=== PATIENT | female | born 1995 | race Caucasian/White ===

== ENCOUNTER 2016-12-27 17:23 | Emergency (ER) | payer SELFPAY ==
--- NOTE | 2016-12-27 18:15 | DIAGNOSTIC IMAGING REPORT ---
PROCEDURE: XR ANKLE 3 OR 4 VIEWS - RIGHT INDICATION: TRAUMA/INJURY TECHNIQUE: Four views. COMPARISON: None. FINDINGS: Osseous structures and joint spaces are normal. IMPRESSION: 1. Normal right ankle.
--- NOTE | 2016-12-27 18:25 | ED NURSING NOTES ---
Clinical Report - Nurses [facility] [address] [place] [address] 12/27/2016 17:28 Patient: PATRIA GRANT TRIAGE Triage time 17:33. Acuity: LEVEL 4. Chief Complaint: INJURY TO RIGHT KNEE and ANKLE. INJURY TO THE RIGHT ANKLE. SEPSIS SCREEN: Sepsis Screen. Negative (no infection suspected/documented). MARCIA COMA SCORE: [place] Coma Scale: 15- eyes open spontaneously (4); best verbal response- oriented x 4 (5); best motor response- obeys commands (6). --17:41 Ayo Villareal R.N. 17:33 12/27/16. BP: 104/52. HR: 92. RR: 16. O2 saturation: 99% on room air. Temp: 98.6 F (oral). Pain level now: 01/23. --17:41 Ayo Villareal R.N. Weight: 95.2 kg stated. Height/Length: 64 inches Per Patient. BMI: 36.1. --17:37 Ayo Villareal R.N. Medications None. --17:36 Ayo Villareal R.N. Allergies Morphine and Related. --17:36 Ayo Villareal R.N. History Arrived by private vehicle. Historian: patient. Accompanied by family. This occurred just prior to arrival. Mechanism of injury: sustained a twisting injury (while hiking). SOCIAL HX: Never smoker. No alcohol use or drug use. ABUSE ASSESSMENT: No report of abuse. --17:41 Ayo Villareal R.N. PROBLEMS: no known problems. ADDITIONAL SURGERIES: . Felopian tube removed. --17:36 Ayo Villareal R.N. Interventions ID band on patient. To treatment room. --17:41 Ayo Villareal R.N. PHYSICAL ASSESSMENT To room via wheelchair. GENERAL / NEURO / PSYCH: Oriented X 4. Alert. Appears in no acute distress. EXTREMITIES: Extremities do not exhibit normal ROM. Capillary refill is less than 2 seconds in the extremities. Extremity pulses are within normal limits. Neuro-vascular status intact to the extremity. Right ankle: tenderness and swelling. Limited ROM secondary to pain and swelling. SKIN: Skin intact. Skin is warm and dry. --17:43 Ayo Villareal R.N. NURSING PROGRESS NOTES Reassurance given. Two patient identifiers checked. Call light placed in reach. Patient placed in chair. Patient ready for evaluation- chart flagged. --17:43 Ayo Villareal R.N. 18:00. Patient returned from radiology by wheelchair with tech. --18:00 McQuoid, Chen, ER Tech1. DISPOSITION / DISCHARGE Departure time: 1833. Condition at departure: unchanged and stable. ( Calvin wrap applied to the right ankle, +CMS distal, decreased pain with Calvin wrap in place.). No learning barriers present. Discharge instructions provided and reviewed with the patient. Reviewed warnings. Reviewed medication(s). Treatments reviewed. Patient verbalized understanding. Written instructions provided in Danish. The patient was discharged by the nurse practitioner. She was discharged home and accompanied by family. She left the Emergency Department in a wheelchair and via private vehicle. Family member driving. --18:47 Ayo Villareal R.N. Locked/Released at 12/27/2016 18:47 by Ayo Villareal R.N.
--- NOTE | 2016-12-27 18:25 | ED NURSING NOTES ---
Clinical Report - Nurses [place] [address] [place] [address] 12/27/2016 17:28 Patient: PATRIA GRANT TRIAGE Triage time 17:33. Acuity: LEVEL 4. Chief Complaint: INJURY TO RIGHT KNEE and ANKLE. INJURY TO THE RIGHT ANKLE. SEPSIS SCREEN: Sepsis Screen. Negative (no infection suspected/documented). MARCIA COMA SCORE: [place] Coma Scale: 15- eyes open spontaneously (4); best verbal response- oriented x 4 (5); best motor response- obeys commands (6). --17:41 Ayo Villareal R.N. 17:33 12/27/16. BP: 104/52. HR: 92. RR: 16. O2 saturation: 99% on room air. Temp: 98.6 F (oral). Pain level now: 01/23. --17:41 Ayo Villareal R.N. Weight: 95.2 kg stated. Height/Length: 64 inches Per Patient. BMI: 36.1. --17:37 Ayo Villareal R.N. Medications None. --17:36 Ayo Villareal R.N. Allergies Morphine and Related. --17:36 Ayo Villareal R.N. History Arrived by private vehicle. Historian: patient. Accompanied by family. This occurred just prior to arrival. Mechanism of injury: sustained a twisting injury (while hiking). SOCIAL HX: Never smoker. No alcohol use or drug use. ABUSE ASSESSMENT: No report of abuse. --17:41 Ayo Villareal R.N. PROBLEMS: no known problems. ADDITIONAL SURGERIES: . Felopian tube removed. --17:36 Ayo Villareal R.N. Interventions ID band on patient. To treatment room. --17:41 Ayo Villareal R.N. PHYSICAL ASSESSMENT To room via wheelchair. GENERAL / NEURO / PSYCH: Oriented X 4. Alert. Appears in no acute distress. EXTREMITIES: Extremities do not exhibit normal ROM. Capillary refill is less than 2 seconds in the extremities. Extremity pulses are within normal limits. Neuro-vascular status intact to the extremity. Right ankle: tenderness and swelling. Limited ROM secondary to pain and swelling. SKIN: Skin intact. Skin is warm and dry. --17:43 Ayo Villareal R.N. NURSING PROGRESS NOTES Reassurance given. Two patient identifiers checked. Call light placed in reach. Patient placed in chair. Patient ready for evaluation- chart flagged. --17:43 Ayo Villareal R.N. 18:00. Patient returned from radiology by wheelchair with tech. --18:00 McQuoid, Chen, ER Tech1. DISPOSITION / DISCHARGE Departure time: 1833. Condition at departure: unchanged and stable. ( Calvin wrap applied to the right ankle, +CMS distal, decreased pain with Calvin wrap in place.). No learning barriers present. Discharge instructions provided and reviewed with the patient. Reviewed warnings. Reviewed medication(s). Treatments reviewed. Patient verbalized understanding. Written instructions provided in Upper Sorbian. The patient was discharged by the nurse practitioner. She was discharged home and accompanied by family. She left the Emergency Department in a wheelchair and via private vehicle. Family member driving. --18:47 Ayo Villareal R.N. Locked/Released at 12/27/2016 18:47 by Ayo Villareal R.N.
--- NOTE | 2016-12-27 18:25 | ED CLINICAL REPORT ---
Clinical Report - Physicians/Mid Levels [facility] [address] [place] [place] [address] 12/27/2016 17:28 Patient: PATRIA GRANT Time Seen: 17:46; initial patient contact, initial documentation, patient care assumed. Arrived- By private vehicle. Historian- patient. HISTORY OF PRESENT ILLNESS Chief Complaint: Injury to the right ankle. The injury happened just prior to arrival. The patient sustained a twisting injury while walking (hiking[place] Patient is experiencing moderate pain. Patient denies injury to the head or neck. No other injury. REVIEW OF SYSTEMS The patient complains of pain on weight bearing. She has had swelling. No tingling, weakness, numbness, suspected foreign body or skin laceration. All systems otherwise negative, except as recorded above. PAST HISTORY See nurses notes. PROBLEMS: no known problems. ADDITIONAL SURGERIES: . Felopian tube removed. --17:36 Ayo Villareal R.N. SOCIAL HISTORY Never smoker. No alcohol use or drug use. No recent travel. Is a local resident. FAMILY HISTORY No significant family medical history. ADDITIONAL NOTES The nursing notes have been reviewed with agreement regarding the chief complaint, HPI, ROS, PMH and patient medications and allergies. PHYSICAL EXAM Vital Signs: 12/27/2016 17:33 BP: 104/52. HR: 92. RR: 16. O2 saturation: 99%. Temp: 98.6 F. Pain level now: 8/10. Have been reviewed as normal and appear to be correct. Appearance: Alert. Oriented X3. No acute distress. Head: Head atraumatic. Eyes: Pupils equal, round and reactive to light. Eyes normal inspection. Respiratory: No respiratory distress. Skin: Skin intact. Skin warm and dry. Extremities: Ankle injury present. Right lateral ankle: mild tenderness and swelling of the lateral malleolus. Limited ROM secondary to pain (diminished plantar flexion, dorsiflexion, inversion and eversion). Neurovascular intact distally. No ligamentous laxity present. No joint effusion. No erythema, laceration, abrasion, ecchymosis or puncture wound. No foreign body or deformity. No foot injury. Foot and ankle exam otherwise negative. Extremities otherwise negative. Neuro, Vascular and Tendons: Vascular status intact. Sensation intact. Motor intact. Tendon function intact. Gait: Abnormal gait. Limping gait. Neuro: Oriented X 3. No motor deficit. No sensory deficit. Note: isolated injury to ankle. LABS, X-RAYS, AND EKG X-Rays: Right ankle negative. Rt Ankle X-ray: (IMPRESSION: 1. Normal right ankle. Electronically Final signed by:Romero Rico MD 12/27/2016 6:16:00 PM). The X-rays were interpreted by the radiologist and contemporaneously by me. PROGRESS AND PROCEDURES Patient counseled in person regarding the patient's stable condition, test results and diagnosis. 18:22. Differential Diagnosis: Other possible considerations: ankle fx vs sprain. Above considerations are based on history, physical exam, reassessment and X-Ray data. Differential diagnosis was discussed with patient. Disposition: Discharged home in good and improved condition (18:25). Condition: good and stable. CLINICAL IMPRESSION Sprain of the tibiofibular ligament of the right ankle. INSTRUCTIONS Apply ice for 20 minutes four times a day for two days until better. Don't apply ice directly to skin. Wear elastic wrap (Calvin wrap) as directed for one weeks until better. Elevate affected areas above chest level for two days until better. Warnings: GENERAL WARNINGS: Return or contact your physician immediately if your condition worsens or changes unexpectedly, if not improving as expected, or if other problems arise. Specifically return if problem worsens. Prescription Medications: Ultram 50 mg tablets: take 1-2 orally every 6 hours as needed for pain. Dispense twenty (20). No refills. Substitution is permissible. Follow-up: Follow up with your doctor in about one week as needed. Call for an appointment. Summary of care provided to patient. Understanding of the discharge instructions verbalized by patient. (Electronically signed by Sidra Oliveira A.R.N.P. 12/27/2016 20:17)
--- NOTE | 2016-12-27 18:26 | ED ORDER SUMMARY ---
..... Patient: PATRIA GRANT OrderSheet [facility] VisitID: [id number] [address] [place] [address] 21y, F Registration Date/Time: 12/27/2016 ORDER SHEET Weight: 95.2 kg (stated) Allergies: Morphine and Related GENERAL ORDERS: Ankle 3 or 4V Right Urgent (17:49 12/27/2016 HBnelly A.R.N.P.) (Ack 17:59 AMcQuoid ER Tech1) (17:59 AMcQuoid ER Tech1) MEDICATION ORDERS: IV FLUIDS: ORDER SHEET NOTES: [Electronically signed by Ayo Villareal R.N. (18:47 12/27/2016)] [Electronically signed by Sidra OliveiraR.N.PRaine (20:17 12/27/2016)] [Electronically locked/signed by Ayo Villareal R.N. (18:47 12/27/2016)]
--- NOTE | 2016-12-27 18:26 | ED ORDER SUMMARY ---
..... Patient: PATRIA GRANT OrderSheet [facility] VisitID: [id number] [address] [place] [address] 21y, F Registration Date/Time: 12/27/2016 ORDER SHEET Weight: 95.2 kg (stated) Allergies: Morphine and Related GENERAL ORDERS: Ankle 3 or 4V Right Urgent (17:49 12/27/2016 HBnelly A.R.N.P.) (Ack 17:59 AMcQuoid ER Tech1) (17:59 AMcQuoid ER Tech1) MEDICATION ORDERS: IV FLUIDS: ORDER SHEET NOTES: [Electronically signed by Ayo Villareal R.N. (18:47 12/27/2016)] [Electronically signed by Sidra OliveiraR.N.PRaine (20:17 12/27/2016)] [Electronically locked/signed by Ayo Villareal R.N. (18:47 12/27/2016)]
--- NOTE | 2016-12-27 20:18 | ED MAR SUMMARY ---
..... Medication Administration Record [facility] [address] [place], [place] [id number] Patient: PATRIA GRANT Visit ID: [id number] 21y, F Weight: 95.2 kg Height/Length: 64 in BMI: 36.1 ALLERGIES: Morphine and Related
--- NOTE | 2016-12-27 20:18 | ED DISCHARGE INSTRUCTIONS ---
Patient: PATRIA GRANT General Instructions [facility] VisitID: [id number] [place] [address] 21y, F Registration Date/Time: 12/27/2016 Sprain of the tibiofibular ligament of the right ankle. INSTRUCTIONS Apply ice for 20 minutes four times a day for two days until better. Don't apply ice directly to skin. Wear elastic wrap (Calvin wrap) as directed for one weeks until better. Elevate affected areas above chest level for two days until better. Warnings: GENERAL WARNINGS: Return or contact your physician immediately if your condition worsens or changes unexpectedly, if not improving as expected, or if other problems arise. Specifically return if problem worsens. Prescription Medications: Ultram 50 mg tablets: take 1-2 orally every 6 hours as needed for pain. Dispense twenty (20). No refills. Substitution is permissible. Follow-up: Follow up with your doctor in about one week as needed. Call for an appointment. Summary of care provided to patient. Understanding of the discharge instructions verbalized by patient. ADDITIONAL INFORMATION Sprain, Ankle,With X-Ray A sprain is an injury to the ligaments or capsule that holds a joint together. There are no broken bones. Most sprains take from four to six weeks to heal. If the ligament is completely torn (severe sprain), it can take several months to recover. Mild to moderate sprains may be treated with an elastic wrap or an in-shoe splint to provide support and prevent re-injury. A mild sprain may not require any additional support. A severe sprain may require surgery to repair. Home care The following guidelines will help you care for your injury at home: Stay off the injured leg as much as possible until you can walk on it without pain. If you have a lot of pain with walking, crutches or a walker may be prescribed. (These can be rented or purchased at many pharmacies and surgical or orthopedic supply stores). Follow your doctor's advice regarding when to begin bearing weight on that leg. Keep your leg elevated to reduce pain and swelling. When sleeping, place a pillow under the injured leg. When sitting, support the injured leg so it is level with your waist. This is very important during the first 48 hours. Apply an ice pack (ice cubes in a plastic bag, wrapped in a towel) over the injured area for 20 minutes every 12 hours the first day. You can place the ice pack directly over the splint/cast. If you were given a boot, open it to apply the ice pack. Continue with ice packs 34 times a day for the next two days, then as needed for the relief of pain and swelling. You may use acetaminophen or ibuprofen to control pain, unless another pain medicine was prescribed. If you have chronic liver or kidney disease or ever had a stomach ulcer or GI bleeding, talk with your doctor before using these medicines. You may return to sports after healing, when you can run without pain. A sprained ankle is at risk for re-injury during the first six weeks. During that time, protect your ankle with an in-shoe splint that prevents tilting of your ankle from side to side. This is very important if you do active work or play sports during that time. Follow-up care Any X-rays you had today dont show any broken bones, breaks, or fractures. Sometimes fractures dont show up on the first X-ray. Bruises and sprains can sometimes hurt as much as a fracture. These injuries can take time to heal completely. If your symptoms dont improve or they get worse, talk with your doctor. You may need a repeat X-ray. When to seek medical care Get prompt medical attention if any of the following occur: The plaster cast or splint gets wet or soft The fiberglass cast or splint gets wet and does not dry for 24 hours Pain or swelling increases, or redness appears Toes become cold, blue, numb or tingly Re-injure your ankle Calvin Wrap An "Calvin Bandage" refers to any elastic bandage wrap (2-6" wide). This is used to apply support and compression to an arm or leg. It will help prevent or reduce swelling also. When applying the bandage, it should not be stretched too tightly. A tight Calvin Wrap will reduce circulation and cause tingling or numbness in the hand or foot. It may increase the pain under the bandage. If you get these symptoms, remove the wrap and rest the limb. Symptoms should go away within 1-2 hours. Once symptoms go away, reapply the bandage with less stretch. If symptoms do not go away after 1-2 hours with the bandage off, call your doctor or return to this facility promptly. Tramadol Hydrochloride Oral tablet What is this medicine? TRAMADOL (TRA ma dole) is a pain reliever. It is used to treat moderate to severe pain in adults. How should I use this medicine? Take this medicine by mouth with a full glass of water. Follow the directions on the prescription label. If the medicine upsets your stomach, take it with food or milk. Do not take more medicine than you are told to take. Talk to your hunting sales leader regarding the use of this medicine in children. Special care may be needed. What side effects may I notice from receiving this medicine? Side effects that you should report to your doctor or health nurse behavioral health care as soon as possible: allergic reactions like skin rash, itching or hives, swelling of the face, lips, or tongue breathing difficulties, wheezing confusion itching light headedness or fainting spells redness, blistering, peeling or loosening of the skin, including inside the mouth seizures Side effects that usually do not require medical attention (report to your doctor or health nurse behavioral health care if they continue or are bothersome): constipation dizziness drowsiness headache nausea, vomiting What may interact with this medicine? Do not take this medicine with any of the following medications: MAOIs like Carbex, Eldepryl, Marplan, Nardil, and Parnate This medicine may also interact with the following medications: alcohol or medicines that contain alcohol antihistamines benzodiazepines bupropion carbamazepine or oxcarbazepine clozapine cyclobenzaprine digoxin furazolidone linezolid medicines for depression, anxiety, or psychotic disturbances medicines for migraine headache like almotriptan, eletriptan, frovatriptan, naratriptan, rizatriptan, sumatriptan, zolmitriptan medicines for pain like pentazocine, buprenorphine, butorphanol, meperidine, nalbuphine, and propoxyphene medicines for sleep muscle relaxants naltrexone phenobarbital phenothiazines like perphenazine, thioridazine, chlorpromazine, mesoridazine, fluphenazine, prochlorperazine, promazine, and trifluoperazine procarbazine warfarin What if I miss a dose? If you miss a dose, take it as soon as you can. If it is almost time for your next dose, take only that dose. Do not take double or extra doses. Where should I keep my medicine? Keep out of the reach of children. Store at room temperature between 15 and 30 degrees C (59 and 86 degrees F). Keep container tightly closed. Throw away any unused medicine after the expiration date. What should I tell my health care provider before I take this medicine? They need to know if you have any of these conditions: brain tumor depression drug abuse or addiction head injury if you frequently drink alcohol containing drinks kidney disease or trouble passing urine liver disease lung disease, asthma, or breathing problems seizures or epilepsy suicidal thoughts, plans, or attempt; a previous suicide attempt by you or a family member an unusual or allergic reaction to tramadol, codeine, other medicines, foods, dyes, or preservatives or trying to get breast-feeding What should I watch for while using this medicine? Tell your doctor or health nurse behavioral health care if your pain does not go away, if it gets worse, or if you have new or a different type of pain. You may develop tolerance to the medicine. Tolerance means that you will need a higher dose of the medicine for pain relief. Tolerance is normal and is expected if you take this medicine for a long time. Do not suddenly stop taking your medicine because you may develop a severe reaction. Your body becomes used to the medicine. This does NOT mean you are addicted. Addiction is a behavior related to getting and using a drug for a non-medical reason. If you have pain, you have a medical reason to take pain medicine. Your doctor will tell you how much medicine to take. If your doctor wants you to stop the medicine, the dose will be slowly lowered over time to avoid any side effects. You may get drowsy or dizzy. Do not drive, use machinery, or do anything that needs mental alertness until you know how this medicine affects you. Do not stand or sit up quickly, especially if you are an older patient. This reduces the risk of dizzy or fainting spells. Alcohol can increase or decrease the effects of this medicine. Avoid alcoholic drinks. You may have constipation. Try to have a bowel movement at least every 2 to 3 days. If you do not have a bowel movement for 3 days, call your doctor or health nurse behavioral health care. Your mouth may get dry. Chewing sugarless gum or sucking hard candy, and drinking plenty of water may help. Contact your doctor if the problem does not go away or is severe. You have been given the following additional information: Sprain, Ankle, With X-Ray Calvin Wrap Tramadol Hydrochloride Oral tablet (Electronically signed by Sidra Oliveira A.R.N.P. 12/27/2016 20:17)
--- NOTE | 2016-12-27 20:18 | ED MAR SUMMARY ---
..... Medication Administration Record [facility] [address] [place], [place] [id number] Patient: PATRIA GRANT Visit ID: [id number] 21y, F Weight: 95.2 kg Height/Length: 64 in BMI: 36.1 ALLERGIES: Morphine and Related
--- NOTE | 2016-12-27 20:18 | ED MED RECONCILIATION SUMMARY ---
Patient: PATRIA GRANT Medication Reconciliation Report [facility] VisitID: [id number] [address] [place] [address] 21y, F Registration Date/Time: 12/27/2016 Weight: 95.2 kg Height/Length: 64 in. BMI: 36.1 ALLERGIES: Morphine and Related The patient's Home Medications are listed below: NONE. The source(s) of the original Home Medication information: Not obtained. The following Medications were given to the patient in the Emergency Department: None. The following Medications were prescribed to the patient: Ultram 50 mg tablets: take 1-2 orally every 6 hours as needed for pain. Dispense twenty (20). No refills. Substitution is permissible. -- Sidra Oliveira A.R.N.P.
--- NOTE | 2016-12-27 20:18 | ED MED RECONCILIATION SUMMARY ---
Patient: PATRIA GRANT Medication Reconciliation Report VisitID: [id number] [address] [place] [address] 21y, F Registration Date/Time: 12/27/2016 Weight: 95.2 kg Height/Length: 64 in. BMI: 36.1 ALLERGIES: Morphine and Related The patient's Home Medications are listed below: NONE. The source(s) of the original Home Medication information: Not obtained. The following Medications were given to the patient in the Emergency Department: None. The following Medications were prescribed to the patient: Ultram 50 mg tablets: take 1-2 orally every 6 hours as needed for pain. Dispense twenty (20). No refills. Substitution is permissible. -- Sidra Oliveira A.R.N.P.
== END 2016-12-27 18:34 | disposition home or self-care (01) ==
LOC: ED SRH 17:23
DX: S93.431A Sprain of tibiofibular ligament of right ankle, initial encounter (principal); X50.1XXA Overexertion from prolonged static or awkward postures, initial encounter; Y93.01 Activity, walking, marching and hiking; Y92.828 Other wilderness area as the place of occurrence of the external cause; Y99.8 Other external cause status; Z88.5 Allergy status to narcotic agent